=== PATIENT | male | born 1975 | race Caucasian/White ===

== ENCOUNTER 2016-08-13 16:31 | Emergency (ER) | payer OTHER ==
--- NOTE | 2016-08-13 17:14 | ED ---
Lower Extremity Injury HPI - General Chief Complaint: Extremity Injury, Lower Stated Complaint: Right Knee Pain Time Seen by Provider: 08/13/16 16:55 Source: patient, RN notes reviewed Mode of arrival: ambulatory Limitations: no limitations - History of Present Illness Initial Comments: 41-year-old male presents emergency Department chief complaint of right knee swelling. Patient states a few days ago at work afterwards he noticed that his knee was a little sore. Patient states since she's also swelling to the knees that he was concerned. Patient denies any falls traumas or injuries to the knee. Patient denies any history of this in the past. Patient states he is able to ambulate. Patient states he was concerned due to the small amount of swelling he had states that he should be evaluated.Patient denies any recent fever, chills, shortness of breath, chest pain, back pain, abdominal pain, nausea vomiting, numbness or tingling, dysuria or hematuria, constipation or diarrhea, headaches or visual changes, or any other current symptoms. - Related Data Previous Rx's Medication Instructions Recorded Docusate [Colace] 100 mg PO DAILY #30 capsule 08/13/13 Allergies Allergy/AdvReac Type Severity Reaction Status Date / Time No Known Allergies Allergy Verified 08/13/16 16:52 Review of Systems ROS Statement: Those systems with pertinent positive or pertinent negative responses have been documented in the HPI. ROS Other: All systems not noted in ROS Statement are negative. Past Medical History Past Medical History: No Reported History History of Any Multi-Drug Resistant Organisms: None Reported Additional Past Surgical History / Comment(s): vasectomy Past Psychological History: No Psychological Hx Reported Smoking Status: Never smoker Past Alcohol Use History: None Reported Past Drug Use History: None Reported General Exam - General Exam Comments Initial Comments: General: The patient is awake and alert, in no distress, and does not appear acutely ill. Neck: The neck is supple, there is no tenderness. Cardiovascular: There is a regular rate and rhythm. No murmur, rub or gallop is appreciated. Respiratory: Lungs are clear to auscultation, respirations are non-labored, breath sounds are equal. No wheezes, stridor, rales, or rhonchi. Musculoskeletal: Full range motion of right hip right knee and right ankle. There does appear to be a small effusion to the right knee. No bony tenderness noted. No laxity noted. No deformity noted. Neurological: CN II-XII intact, There are no obvious motor or sensory deficits. Coordination appears grossly intact. Speech is normal. Skin: Skin is warm and dry and no rashes or lesions are noted. Psychiatric: Normal mood and affect. Limitations: no limitations Course Vital Signs 08/13/16 08/13/16 16:49 18:30 Temperature 98.4 F 98.3 F Pulse Rate 76 61 Respiratory 18 20 Rate Blood Pressure 136/81 146/85 O2 Sat by Pulse 98 96 Oximetry Procedures - Orthopedic Splinting/Casting Injury #1 Side: right Lower Extremity Injury Location: knee Lower Extremity Immobilizer: Silviano wrap Medical Decision Making - Medical Decision Making 41-year-old male presents for right knee injury. This tenderness. A small effusion. We discussed follow-up with orthopedic discussed return parameters discussed all the patient's questions. He stated the [facility] management plan. All questions have been answered. They will be discharged home. - Radiology Data Radiology results: report reviewed, image reviewed Interpreted by me: verbal report given Disposition Clinical Impression: Effusion, right knee Disposition: HOME SELF-CARE Condition: Stable Instructions: Swollen Knee Joint (ED) Additional Instructions: Please use medication as discussed. Please follow up with family doctor if symptoms have not improved over the next two days. Please return to the emergency room if your symptoms increase or worsen or for any other concerns. Referrals: Elvin Osborne MD [Primary Care Provider] - 1-2 days
[2016-08-13 18:31] VITALS: BP 146/85; PULSE 61; RESP 20; TEMP 98.3
== END 2016-08-13 18:31 | disposition home or self-care (01) ==
LOC: EC 16:31
DX: M25.461 Effusion, right knee (principal)
CPT/HCPCS: 99283

== ENCOUNTER → 2016-08-21 | Outpatient (CLI) | payer OTHER ==
--- NOTE | 2016-08-21 07:05 | MR ---
EXAMINATION TYPE: MR knee RT wo con DATE OF EXAM: 08/21/2016 6:54 AM COMPARISON: NONE HISTORY: Right knee pain TECHNIQUE: Multiplanar, multiecho imaging of the right knee is performed without IV contrast. FINDINGS: There is a small joint effusion. There is no significant chondromalacia. There is a minimally displaced, oblique tear to the lateral aspect of the posterior horn of the media l meniscus. This communicates with both the inferior and superior articulating surfaces. The lateral meniscus is unremarkable. Both the anterior and posterior cruciate ligaments are intact. Both the medial and lateral collateral ligament complexes are intact. Iliotibial band inserts normall y upon Gerdy's tubercle. The popliteus muscle and tendon are unremarkable. Both the quadriceps and patellar tendons are intact. There is no significant swelling in the Hoffa fa t space. No bony abnormality is seen. IMPRESSION: 1. MINIMALLY DISPLACED, OBLIQUE TEAR THROUGH THE LATERAL ASPECT OF THE POSTERIOR HORN OF THE MEDIAL M ENISCUS. 2. SMALL JOINT EFFUSION.
== END | disposition home or self-care (01) ==
LOC: RADMRIMAIN 06:19
PROVIDERS: ATTEND Emergency Medicine
DX: S83.241A Other tear of medial meniscus, current injury, right knee, initial encounter (principal)